=== PATIENT | male | born 1960 | race Hispanic/Latino ===

== ENCOUNTER 2025-03-13 15:23 | Emergency (ER) | payer BC, OTHER ==
[2025-03-13] MEDS ORDERED: Lidocaine 1% (PF) 30 ML VIAL ONE (15:44)
[2025-03-13] MEDS ORDERED: Cephalexin 500 MG CAP ONE (17:05)
[2025-03-13] MEDS ORDERED: Acetaminophen 500 MG TAB ONE (17:05)
[2025-03-13] MEDS ORDERED: Bacitracin 1 PK ONE (17:59)
== END 2025-03-13 18:31 | disposition home or self-care (01) ==
LOC: NAV ERS 15:23
DX: S67.196A Crushing injury of right little finger, initial encounter (principal); Z75.8 Other problems related to medical facilities and other health care; W23.0XXA Caught, crushed, jammed, or pinched between moving objects, initial encounter
CPT/HCPCS: 12002; 99283; J2003; J3490